=== PATIENT | female | born 1975 | race Caucasian/White ===

== ENCOUNTER 2022-05-30 13:27 | Emergency (ER) | payer OTHER ==
[~2022-05-30] VITALS: Ht 162.6 cm; Wt 69.0 kg
[2022-05-30 13:31] VITALS: BP 121/73
[2022-05-30] MEDS ORDERED: AMLODIPINE (13:31)
== END 2022-05-30 13:57 | disposition left against medical advice (07) ==
LOC: ER 13:27
DX: R55 Syncope and collapse (principal); R53.1 Weakness; R42 Dizziness and giddiness
CPT/HCPCS: 99283